=== PATIENT | female | born 1975 | race Two or more races ===

== ENCOUNTER 2024-02-29 12:57 | Emergency (ER) | payer OTHER ==
[~2024-02-29] VITALS: Ht 152.4 cm; Wt 68.0 kg
[2024-02-29] MEDS ORDERED: Norco 5-325 Ta1 EACH PO (13:10)
[2024-02-29] MEDS ORDERED: AMOCLA875 PO (13:10)
== END 2024-02-29 13:13 | disposition home or self-care (01) ==
LOC: ER 12:57
DX: K04.7 Periapical abscess without sinus (principal); Z88.8 Allergy status to other drugs, medicaments and biological substances; Z79.2 Long term (current) use of antibiotics
CPT/HCPCS: 99282

== ENCOUNTER 2024-09-26 10:44 | Emergency (ER) | payer OTHER ==
[~2024-09-26] VITALS: Ht 152.4 cm; Wt 86.2 kg
[~2024-09-26 10:44] MED LIST: AMOCLA875 PO; Norco 5-325 Ta1 EACH PO
[2024-09-26] MEDS ORDERED: CLIN300 PO (11:02)
[2024-09-26] MEDS ORDERED: HYDR1TAB94 PO (11:02)
== END 2024-09-26 11:00 | disposition home or self-care (01) ==
LOC: ER 10:44
DX: K04.7 Periapical abscess without sinus (principal); Z88.8 Allergy status to other drugs, medicaments and biological substances
CPT/HCPCS: 99282

== ENCOUNTER 2024-12-30 13:12 | Emergency (ER) | payer OTHER ==
[~2024-12-30] VITALS: Ht 152.4 cm; Wt 81.7 kg
[~2024-12-30 13:12] MED LIST changes: +CLIN300 PO; +HYDR1TAB94 PO
[2024-12-30] MEDS ORDERED: BENZ100A PO (14:19)
== END 2024-12-30 14:24 | disposition home or self-care (01) ==
LOC: ER 13:12
DX: K04.7 Periapical abscess without sinus (principal); B34.9 Viral infection, unspecified; E11.9 Type 2 diabetes mellitus without complications; Z79.899 Other long term (current) drug therapy; Z88.8 Allergy status to other drugs, medicaments and biological substances
CPT/HCPCS: 99282